=== PATIENT | male | born 1995 | race Caucasian/White ===

== ENCOUNTER 2020-05-31 08:59 | Emergency (ER) | payer OTHER ==
[~2020-05-31 08:59] MED LIST: AUGMENTIN 875-1 EACH PO; CETIRIZINE HCL10 MG PO; CYCLOBENZAPRINE5 MG PO; MONTELUKAST SOD10 MG PO; OMEPRAZOLE20 MG PO; PERCOCET 10-321 EACH PO; PERCOCET 5-3251 EACH PO; PREDNISONE10 MG PO; PROVENTIL HFA6.7 GM INH
== END 2020-05-31 11:30 | disposition home or self-care (01) ==
LOC: ER1 08:59
DX: M79.10 Myalgia, unspecified site (principal); R68.83 Chills (without fever); R53.1 Weakness; J45.909 Unspecified asthma, uncomplicated; E03.9 Hypothyroidism, unspecified; F17.290 Nicotine dependence, other tobacco product, uncomplicated; Z79.899 Other long term (current) drug therapy; Z87.19 Personal history of other diseases of the digestive system; Z20.828 Contact with and (suspected) exposure to other viral communicable diseases
CPT/HCPCS: 87081; 87880; 99284; U0003

== ENCOUNTER 2021-01-14 09:41 | Emergency (ER) | payer OTHER | END 2021-01-14 12:29 | disposition home or self-care (01) | LOC: ER1 09:41 | DX: U07.1 COVID-19 (principal); F17.200 Nicotine dependence, unspecified, uncomplicated; J45.909 Unspecified asthma, uncomplicated | CPT/HCPCS: 87081; 87880; 99284; U0002 ==

== ENCOUNTER 2021-01-17 17:57 | Emergency (ER) | payer OTHER ==
[2021-01-17 19:34] LABS: HEMOGLOBIN 15.8 gm/dl (14.0-17.5); RED BLOOD COUNT 5.55 M/UL (4.20-5.50); WHITE BLOOD COUNT 7.6 K/UL (4.5-11.0)
[2021-01-17 20:04] LABS: BUN/CREATININE RATIO 12 (0-10)
[2021-01-17] MEDS ORDERED: MECLIZINE HCL25 MG PO (23:58)
[2021-01-17] MEDS ORDERED: AMOXICILLIN875 MG PO (23:58)
== END 2021-01-18 00:09 | disposition home or self-care (01) ==
LOC: ER1 17:57
PROVIDERS: Physician Assistant
DX: U07.1 COVID-19 (principal); J40 Bronchitis, not specified as acute or chronic; E03.9 Hypothyroidism, unspecified; H66.91 Otitis media, unspecified, right ear; F17.290 Nicotine dependence, other tobacco product, uncomplicated; Z79.899 Other long term (current) drug therapy
CPT/HCPCS: 70450; 71045; 80053; 84439; 84443; 85025; 99284

== ENCOUNTER 2021-01-18 10:50 | Emergency (ER) | payer OTHER ==
[~2021-01-18] VITALS: Ht 182.9 cm; Wt 149.7 kg
[~2021-01-18 10:50] MED LIST changes: +AMOXICILLIN875 MG PO; +MECLIZINE HCL25 MG PO
== END 2021-01-18 13:50 | disposition home or self-care (01) ==
LOC: ER1 10:50
DX: U07.1 COVID-19 (principal); J45.909 Unspecified asthma, uncomplicated; E03.9 Hypothyroidism, unspecified; F17.290 Nicotine dependence, other tobacco product, uncomplicated
CPT/HCPCS: 99283

== ENCOUNTER 2021-12-13 04:56 | Emergency (ER) | payer OTHER ==
[2021-12-13] MEDS ORDERED: CEPHALEXIN500 M1 PO (05:58)
[2021-12-13] MEDS ORDERED: IBUPROFEN600 MG PO (05:58)
== END 2021-12-13 06:10 | disposition home or self-care (01) ==
LOC: ER1 04:56
DX: L03.032 Cellulitis of left toe (principal); J45.909 Unspecified asthma, uncomplicated; F17.290 Nicotine dependence, other tobacco product, uncomplicated
CPT/HCPCS: 99283